=== PATIENT | male | born 1965 | race Hispanic/Latino ===

== ENCOUNTER → 2018-07-29 | Outpatient (CLI) | payer OTHER ==
[~2018-07-29] MED LIST: REGADENOSON 0.4 MG/5 ML PF SYG IVP SCH
== END | disposition home or self-care (01) ==
LOC: SHCH 08:24
PROVIDERS: ATTEND Internal Medicine Cardiovascular Disease
DX: I20.8 Other forms of angina pectoris (principal)
CPT/HCPCS: 78452; 93017; 96374; A9500 ×2; J2785

== ENCOUNTER 2018-09-03 05:57 | Day surgery (SDC) | payer OTHER ==
[2018-09-01 10:16] VITALS: BP 131/81
--- NOTE | 2018-09-01 10:30 | NUR ---
note pt requested to be first case so that he is able to go to dialysis at 4pm. spoke to min mohamud, and he agreed. pt will be first case 09/03/18
[2018-09-01 10:37] LABS: APPEARANCE,URINE Cloudy (CLEAR); BILIRUBIN,URINE Negative (NEGATIVE); COLOR,URINE Yellow (YELLOW); GLUCOSE, URINE (UA) TRACE mg/dL (NEGATIVE); KETONES,URINE Trace mg/dL (NEGATIVE); LEUKOCYTE ESTERASE ,URINE Trace (NEGATIVE); NITRATE,URINE Negative (NEGATIVE); OCCULT BLOOD,URINE Trace (NEGATIVE); PROTEIN,URINE >=1000 (NEGATIVE); UROBILINOGEN,URINE 0.2 mg/dL (0.2-1.0)
[2018-09-01 10:40] LABS: BASOPHILS % (AUTO) 0.9 % (0.0-5.0); EOSINOPHILS % (AUTO) 2.3 % (0.0-8.0); HEMATOCRIT 38.2 % (42-54); LYMPHOCYTES % (AUTO) 16.3 % (21.0-51.0); MEAN CORPUSCULAR HGB CONC 32.7 g/dL (32.0-36.0); MONOCYTES % (AUTO) 7.3 % (3.0-13.0); NEUTROPHILS % (AUTO) 73.2 % (40.0-77.0); NUCLEATED RED BLOOD CELLS 0.1 % (0.0-0.19); PLATELET COUNT (AUTO) 192 K/uL (130-400); RED BLOOD CELL COUNT(AUTO) 4.02 MIL/uL (4.50-6.20); RED CELL DISTRIBUTION WIDTH 14.3 % (11.0-15.5); WHITE BLOOD COUNT (AUTO) 9.1 K/uL (4.8-10.8)
[2018-09-01 10:48] LABS: AMORPHOUS SEDIMENT,UR Few /LPF (None Seen); SQUAMOUS EPITHELIAL CELL,UR Few /HPF (0-2)
[2018-09-01 10:49] LABS: BACTERIA,URINE Few /HPF (None Seen); RBC,URINE 0-1 /HPF (0-1); WBC,URINE 0-1 /HPF (0-1)
[2018-09-01 10:52] LABS: POTASSIUM 5.5 mmol/L (3.5-5.1)
[2018-09-01 10:54] LABS: CREATININE 11.4 mg/dL (0.5-1.5)
[2018-09-01 11:01] LABS: INR 0.98 (0.85-1.15); PARTIAL THROMBOPLASTIN TIME 28.6 SEC (26.3-35.5); PROTHROMBIN TIME 10.3 SEC (9.6-11.6)
--- NOTE | 2018-09-02 10:58 | NUR ---
LABS ABNORMAL LABS REPORTED TO ELDON FARRELL ( DR ALBERTO). NA + 132, K+ 5.5, BUN 71, CREA 11.4 . FURTHER ORDERS GIVEN
[~2018-09-03] VITALS: Ht 162.6 cm; Wt 81.6 kg
[2018-09-03] VITALS (10 sets, daily range): BP systolic 94–204; BP diastolic 53–106
[~2018-09-03 05:57] MED LIST changes: +ALPR-410 PO; +AMLO5TAB9 PO; +ASPI-555 PO; +ATOR40TA71 PO; +CARV25TA PO; +PROM50TA3 PO; -REGADENOSON 0.4 MG/5 ML PF SYG IVP SCH; +VALS160T29 PO
[2018-09-03 06:31] LABS: CREATININE 8.9 mg/dL (0.5-1.5)
[2018-09-03] MEDS ORDERED: SODIUM CHLORIDE 0.9% 1000ML 1,000 ML IV ONE (06:39)
--- NOTE | 2018-09-03 06:40 | NUR ---
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
--- NOTE | 2018-09-03 06:57 | NUR ---
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 Pt in bed, eyes open, stable no concerns.
--- NOTE | 2018-09-03 07:05 | NUR ---
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
[2018-09-03] MEDS ORDERED: HEPARIN SODIUM 1000UNIT/ML 10ML VIAL ONE (07:16)
[2018-09-03] MEDS ORDERED: NITROGLYCERIN 5 MG/ML 10 ML VIAL IV ONE (07:16)
[2018-09-03] MEDS ORDERED: IOHEXOL 350 MG/ML 100ML INFUS..BTL IV ONE (07:16)
[2018-09-03] MEDS ORDERED: IOHEXOL-350 50ML VIAL IV ONE (07:17)
[2018-09-03] MEDS ORDERED: LIDOCAINE HCL 2% 20ML ONE (07:17)
[2018-09-03] MEDS ORDERED: MIDAZOLAM HCL 1 MG/ML 2ML VIAL ONE (07:20)
[2018-09-03] MEDS ORDERED: FENTANYL CITRATE PF 50 MCG/1 ML 2ML VIAL ONE (07:20)
[2018-09-03] MEDS ORDERED: BIVALIRUDIN 250 MG/VIAL IV ONE (07:52)
[2018-09-03] MEDS ORDERED: NITROGLYCERIN 0.4 MG SL TAB SL PRN (08:45)
[2018-09-03] MEDS ORDERED: METOPROLOL TARTRATE 1 MG/ML 5ML VIAL IV PRN (08:45)
[2018-09-03] MEDS ORDERED: GLUCAGON 1MG KIT 1 MG ML IM PRN (08:45)
[2018-09-03] MEDS ORDERED: DEXTROSE 50%-WATER 50 ML DISP.SYRIN IV PRN (08:45)
[2018-09-03] MEDS ORDERED: INSULIN HUMULIN R 100 UNIT/ML 3ML SQ SCH (11:30)
--- NOTE | 2018-09-03 12:20 | NUR ---
no voids pt normally does not void as per pt due to dialysis
== END 2018-09-03 12:30 | disposition home or self-care (01) ==
LOC: DAH 05:57
PROVIDERS: ATTEND Internal Medicine Cardiovascular Disease
DX: I25.810 Atherosclerosis of coronary artery bypass graft(s) without angina pectoris (principal); I25.5 Ischemic cardiomyopathy; E78.5 Hyperlipidemia, unspecified; Z98.890 Other specified postprocedural states; Z82.49 Family history of ischemic heart disease and other diseases of the circulatory system; Z83.3 Family history of diabetes mellitus; Z79.899 Other long term (current) drug therapy; Z88.8 Allergy status to other drugs, medicaments and biological substances; Z68.30 Body mass index [BMI] 30.0-30.9, adult; N18.9 Chronic kidney disease, unspecified
CPT/HCPCS: 36415 ×2; 71045; 80048 ×2; 81001; 82948 ×2; 85025; 85610; 85730; 93005; 93459; A4606; C1760; C1769; C1894 ×2; J1644; J2250; J3010; J3490 ×2; J7030; Q9965 ×2; Q9967 ×2; 99156; 99157; J0583

== ENCOUNTER → 2019-04-18 | Outpatient (CLI) | payer OTHER ==
[~2019-04-18] MED LIST changes: -ATOR40TA71 PO; -VALS160T29 PO
== END | disposition home or self-care (01) ==
LOC: RAH 14:53
PROVIDERS: ATTEND Family Medicine
DX: R51 Headache (principal)
CPT/HCPCS: 72040

== ENCOUNTER → 2021-02-22 | Outpatient (CLI) | payer MEDICARE ==
[~2021-02-22] MED LIST changes: +AMLO-257 PO; -AMLO5TAB9 PO; -ASPI-555 PO; +ASPI-556 PO
== END | disposition home or self-care (01) ==
LOC: RAH 11:51
PROVIDERS: ATTEND Otolaryngology Plastic Surgery within the Head & Neck
DX: H70.91 Unspecified mastoiditis, right ear (principal); H66.91 Otitis media, unspecified, right ear
CPT/HCPCS: 70480